=== PATIENT | female | born 1965 | race Hispanic/Latino ===

== ENCOUNTER 2022-11-08 11:00 | Emergency (ER) | payer SELFPAY | END 2022-11-08 12:52 | disposition home or self-care (01) | LOC: ERS 11:00 | DX: R03.0 Elevated blood-pressure reading, without diagnosis of hypertension (principal); E03.9 Hypothyroidism, unspecified; Z76.0 Encounter for issue of repeat prescription | CPT/HCPCS: 99283 ==

== ENCOUNTER 2022-11-09 19:03 | Emergency (ER) | payer SELFPAY ==
[2022-11-09] MEDS ORDERED: cloNIDine 0.1 MG TAB ONE (19:31)
== END 2022-11-09 19:59 | disposition home or self-care (01) ==
LOC: ERS 19:03
DX: R04.0 Epistaxis (principal); I10 Essential (primary) hypertension; E03.9 Hypothyroidism, unspecified; Z79.899 Other long term (current) drug therapy
CPT/HCPCS: 99283